=== PATIENT | female | born 1955 | race Caucasian/White ===

== ENCOUNTER → 2018-05-04 08:33 | Outpatient (CLI) | payer MEDICAID, SELFPAY ==
--- NOTE | 2018-05-04 08:36 | CI_ITS ---
Cerebrovascular Exam Indications: 785.9 Bruit. IMPRESSIONS 1. The bilateral vertebral arteries are patent with normal antegrade flow. 2. Study suggests less than 20% stenosis involving the right internal carotid artery and the left internal carotid artery. 3. Tortuous carotid arteries seen bilaterally. Carotid duplex study. Complete study and Doppler flow study including spectral analysis, color and concepcion scale imaging. Height: Height: 149.9cm. Height: 59in. Weight: Weight: 52.2kg. Weight: 114.8lb. Body mass index: BMI: 23.2kg/m^2. Body surface area: BSA: 1.48m^2. Location: Vascular laboratory. Patient status: Outpatient. Tables: Arterial flow: + +--------+---------+ Location V sys V ed + +--------+---------+ Right CCA - proximal 91.9cm/s -20.4cm/s + +--------+---------+ Right CCA - distal 77cm/s 24.4cm/s + +--------+---------+ Right ECA 108cm/s --------- + +--------+---------+ Right ICA - proximal 81.7cm/s 31.4cm/s + +--------+---------+ Right ICA - mid 143cm/s 36.7cm/s + +--------+---------+ Right ICA - distal 155cm/s 45.4cm/s + +--------+---------+ Right vertebral 46.3cm/s --------- + +--------+---------+ Left CCA - proximal 74.2cm/s 19.2cm/s + +--------+---------+ Left CCA - distal 88.2cm/s -26.2cm/s + +--------+---------+ Left ECA 75.1cm/s --------- + +--------+---------+ Left ICA - proximal 70.7cm/s 20.1cm/s + +--------+---------+ Left ICA - mid 85.1cm/s 27.7cm/s + +--------+---------+ Left ICA - distal 75.9cm/s 26.2cm/s + +--------+---------+ Left vertebral 40.2cm/s --------- + +--------+---------+ Velocity ratios: + + + + + Right, V sys Right, V ed Left, V sys + + + + + Max ICA/dist CCA 2.01 1.86 0.96 + + + + + (Report amended ) Electronically signed by: Braeden Powell [id number]
== END ==
PROVIDERS: PCP Emergency Medicine; Visit Provider Emergency Medicine
DX: R09.89 Other specified symptoms and signs involving the circulatory and respiratory systems (principal)
CPT/HCPCS: 93880

== ENCOUNTER → 2018-07-19 17:41 | Outpatient (CLI) | payer MEDICAID, SELFPAY ==
[2018-07-19 18:31] LABS: Amphetamine/Metha Screen,Urine Negative ng/mL (<1000); Barbiturates Screen,Urine Negative ng/mL (<200); Benzodiazepines Screen,Urine Positive ng/mL (<200); Cannabinoid Screen,Urine Negative ng/mL (<50); Cocaine Screen,Urine Negative ng/mL (<300); Methadone Screen,Urine Negative ng/mL (<300); Opiate Screen,Urine Negative ng/mL (<300); Phencyclidine Screen,Urine Negative ng/mL (<25)
== END ==
PROVIDERS: Visit Provider Physician Assistant
DX: Z79.899 Other long term (current) drug therapy (principal)
CPT/HCPCS: 80305

== ENCOUNTER → 2018-07-23 15:23 | Outpatient (CLI) | payer MEDICAID, SELFPAY ==
--- NOTE | 2018-07-23 15:26 | MR_ITS ---
MR lumbar spine wo con, MR 3-d myelogram/MRCP HISTORY: Low back. RT leg pain, numbness and tingling. PT also states beginning to move up into mid back area. ITS.REASON: Lumbar pain RLE numbness ORDERING PHYSICIAN: KLEBER Mota PATIENT AGE: 63 years Comparison: MRI 01/04/16. TECHNIQUE: Standard multiplanar multiecho sequences are performed without contrast. 3-D MIP and myelographic images are also rendered and reviewed FINDINGS: There is normal alignment. The spinal cord ends at the L1 level. T10-T11: Mild degenerative disc disease. T11-T12: Mild degenerative disc disease T12-L1, L1-L2, L2-L3, and L3-L4 have an unremarkable appearance. L4-L5: Minimal bulging disc with mild facet and ligamentum flavum hypertrophy with mild bilateral lateral recess narrowing. There is transverse narrowing of the canal. L5-S1: Unremarkable. IMPRESSION: 1. Mild adjacent disc disease lower thoracic spine. 2. Minimal bulging disc L4-5 with mild facet and ligamentum flavum hypertrophy with mild bilateral lateral recess narrowing. There is transverse narrowing of the canal 3. No disc herniation. No significant change
== END ==
PROVIDERS: PCP Physician Assistant; Visit Provider Physician Assistant
DX: M54.5 Low back pain (principal)
CPT/HCPCS: 72148; 76376

== ENCOUNTER → 2018-09-16 14:37 | Outpatient (CLI) | payer MEDICAID, SELFPAY | LOC: LAB 14:37 → LAB.DROPOF 14:37 | PROVIDERS: Visit Provider Obstetrics & Gynecology | DX: N39.0 Urinary tract infection, site not specified (principal) | CPT/HCPCS: 87086 ==

== ENCOUNTER → 2018-09-22 14:19 | Outpatient (CLI) | payer MEDICAID, SELFPAY | PROVIDERS: Visit Provider Emergency Medicine | DX: R10.9 Unspecified abdominal pain (principal) | CPT/HCPCS: 87086 ==

== ENCOUNTER → 2018-09-28 13:44 | Outpatient (CLI) | payer MEDICAID, SELFPAY ==
[2018-09-28 15:25] LABS: Amphetamine/Metha Screen,Urine Negative ng/mL (<1000); Barbiturates Screen,Urine Negative ng/mL (<200); Benzodiazepines Screen,Urine Positive ng/mL (<200); Cannabinoid Screen,Urine Negative ng/mL (<50); Cocaine Screen,Urine Negative ng/mL (<300); Methadone Screen,Urine Negative ng/mL (<300); Opiate Screen,Urine Negative ng/mL (<300); Phencyclidine Screen,Urine Negative ng/mL (<25)
== END ==
PROVIDERS: Visit Provider Emergency Medicine
DX: Z79.899 Other long term (current) drug therapy (principal)
CPT/HCPCS: 80305

== ENCOUNTER → 2018-10-15 08:58 | Outpatient (CLI) | payer MEDICAID, SELFPAY ==
--- NOTE | 2018-10-15 08:59 | MM_ITS ---
MM Dig screening mamm BI w/CAD CAD Screening COMPARISON: Digital mammograms with CAD 11/27/2015 and 12/10/2016 INDICATION: There is a history of breast cancer in patient's paternal aunt. TECHNIQUE: Standard CC and MLO images were obtained. R2 CAD reviewed. FINDINGS: Prominent somewhat heterogenic fibroglandular densities are seen in both breasts. There is a possible asymmetric developing density upper quadrant of the right breast only deftly seen on MLO projection. This likely is a summation shadow but recommend patient return for spot compression MLO view and 90 degrees lateral view and ultrasound if this proves to be a true lesion. There are couple of benign-appearing calcifications left breast. There is minimal arterial calcination in each breast. There are no suspicious microcalcifications. There are stable nodes in both axilla. IMPRESSION: Moderate breast density with possible developing asymmetric density right breast BI-RADS Category: 0 Need Additional Imaging Evaluation RECOMMENDED FOLLOW-UP: IMM - IMMEDIATE FOLLOW-UP RECOMMENDED (A letter has been sent to the patient regarding results of the study.)
--- NOTE | 2018-10-15 08:59 | XR_ITS ---
XR DEXA axial skeleton HISTORY: ITS.REASON: screening ORDERING PHYSICIAN: Henri Mishra MD PATIENT AGE: 63 years COMPARISON: 12/10/2016 FINDINGS: The BMD measured at the Left femoral neck is 0.614 g/cm squared with a T score of -3.1. This is considered Osteoporotic according to the World Health Organization criteria. Fracture risk is High. Treatment is advised. The L1 L4 density has a T score of -2.3 and has decreased by 1.8%. Hip density has increased by 1.7%. IMPRESSION: Osteoporosis with high fracture risk. Treatment is advised. Suggest follow-up exam September 2019
== END ==
PROVIDERS: PCP Emergency Medicine; Visit Provider Obstetrics & Gynecology
DX: Z12.31 Encounter for screening mammogram for malignant neoplasm of breast (principal); Z13.820 Encounter for screening for osteoporosis; M81.0 Age-related osteoporosis without current pathological fracture
CPT/HCPCS: 77067; 77080

== ENCOUNTER → 2018-11-10 14:53 | Outpatient (CLI) | payer MEDICAID, SELFPAY ==
--- NOTE | 2018-11-10 14:56 | MM_ITS ---
MM Dig mamm DX unilat RT CAD INDICATION: Follow-up abnormal mammogram ORDERING PHYSICIAN: Henri Mishra MD PATIENT AGE: 63 years COMPARISON: 10/15/2018, 11/14/2013 TECHNIQUE: Spot compression views and straight ML view FINDINGS: The area of asymmetry in the upper aspect of the right breast does appear to compress out as fibroglandular tissue. Just superior to this is a additional asymmetric area which is also felt to be fibroglandular tissue and is not significant change dating back to 11/14/2013 IMPRESSION: Probably benign findings, no evidence of malignancy. Asymmetric fibroglandular tissue is felt to have accounted for the radiographic abnormality BI-RADS Category: 3 Probably Benign Finding Short Term Follow-up RECOMMENDED FOLLOW-UP: 6M - 6 MONTH FOLLOW-UP (A letter has been sent to the patient regarding results of the study.)
== END ==
PROVIDERS: PCP Emergency Medicine; Visit Provider Obstetrics & Gynecology
DX: R92.8 Other abnormal and inconclusive findings on diagnostic imaging of breast (principal)
CPT/HCPCS: 77065

== ENCOUNTER → 2018-12-22 14:03 | Outpatient (CLI) | payer MEDICAID, SELFPAY ==
[2018-12-22 15:23] LABS: Amphetamine/Metha Screen,Urine Negative ng/mL (<1000); Barbiturates Screen,Urine Negative ng/mL (<200); Benzodiazepines Screen,Urine Positive ng/mL (<200); Cannabinoid Screen,Urine Negative ng/mL (<50); Cocaine Screen,Urine Negative ng/mL (<300); Methadone Screen,Urine Negative ng/mL (<300); Opiate Screen,Urine Negative ng/mL (<300); Phencyclidine Screen,Urine Negative ng/mL (<25)
== END ==
PROVIDERS: Visit Provider Emergency Medicine
DX: Z79.899 Other long term (current) drug therapy (principal)
CPT/HCPCS: 80305

== ENCOUNTER → 2019-06-21 16:32 | Outpatient (CLI) | payer MEDICAID, SELFPAY ==
[2019-06-21 19:54] LABS: Amphetamine/Metha Screen,Urine Negative ng/mL (<1000); Barbiturates Screen,Urine Negative ng/mL (<200); Benzodiazepines Screen,Urine Positive ng/mL (<200); Cannabinoid Screen,Urine Positive ng/mL (<50); Cocaine Screen,Urine Negative ng/mL (<300); Methadone Screen,Urine Negative ng/mL (<300); Opiate Screen,Urine Negative ng/mL (<300); Phencyclidine Screen,Urine Negative ng/mL (<25)
== END ==
PROVIDERS: Visit Provider Emergency Medicine
DX: Z79.899 Other long term (current) drug therapy (principal); N39.0 Urinary tract infection, site not specified
CPT/HCPCS: 80305; 87086

== ENCOUNTER → 2019-06-28 12:38 | Outpatient (CLI) | payer MEDICAID, SELFPAY ==
--- NOTE | 2019-06-28 12:38 | MM_ITS ---
PROCEDURE: MM DIG MAMM DX UNILAT RT CAD CLINICAL INDICATION: 6 MTH F/U RT BREAST DENSITY, abnormal mamm COMPARISON: DIG MAMM-DX UNI-RT from 11/10/2018 TECHNIQUE: Standard CC and MLO images and 3D Tomosynthesis was obtained. Spot compression views were obtained in MLO and CC projection. R2 CAD reviewed. FINDINGS: Moderate fibroglandular densities are seen in the central portion of the breast. Again noted is a benign-appearing calcification just deep to the nipple and a 2nd benign-appearing microcalcification upper central portion. Spot compression views and particularly the tomosynthesis views show no persistent or suspicious asymmetric density. IMPRESSION: Moderate breast density with no suspicious lesions seen BI-RAD Category: 2 Benign Finding(s) FOLLOW-UP: 6M 6Month Follow-up to return to normal yearly screening schedule (A letter has been sent to the patient regarding results of the study.) Dictated by: Dr. Jarvis Owusu MD 07/02/2019 08:[address] Jarvis Owusu MD in [place] 07/02/2019 08:54
== END ==
PROVIDERS: PCP Emergency Medicine; Visit Provider Obstetrics & Gynecology
DX: R92.8 Other abnormal and inconclusive findings on diagnostic imaging of breast (principal)
CPT/HCPCS: 77061; 77065; G0279

== ENCOUNTER → 2019-07-05 13:38 | Outpatient (CLI) | payer MEDICAID, SELFPAY ==
--- NOTE | 2019-07-05 13:44 | CT_ITS ---
PROCEDURE: CT ABDOMEN PELVIS WO CON CLINICAL INDICATION: renal colic Renal colic, urinary tract infection, hematuria, bilateral flank pain COMPARISON: ABDPELWO CT abdomen pelvis wo con from 09/22/2018 TECHNIQUE: Axial images obtained with sagittal and coronal reformats. All CT scans at the facility use one or more dose reduction, viz: automated exposure control, ma/kV adjustment per patient size (including targeted exams where dose is matched to indication, i.e. head), or iterative reconstruction technique. FINDINGS: LOWER THORAX: There is a faint 5 mm nodule in the left lung base within the lingula medially not significantly changed. The there are coronary artery calcifications ABDOMEN & PELVIS: The liver, gallbladder, spleen, and pancreas have an unremarkable unenhanced appearance. Low-density nodularity is noted in the right adrenal gland measuring near water density and may be due to adenoma involvement. Not significantly changed. There is a 4 mm nonobstructing stone in the lower pole of the right kidney. No ureteral calculi. No hydronephrosis. No evidence of appendicitis or diverticulitis. There is a mild amount of retained colonic feces. No acute bony anomalies area in. Scattered calcific plaque is present involving the aortoiliac vessels. IMPRESSION: Nonobstructing right nephrolithiasis otherwise negative Dictated by: Braeden Powell MD 07/06/2019 14:36 Electronically signed by Braeden Powell MD in [place] 07/06/2019 14:36
== END ==
PROVIDERS: PCP Emergency Medicine; Visit Provider Emergency Medicine
DX: N23 Unspecified renal colic (principal)
CPT/HCPCS: 74176

== ENCOUNTER → 2019-12-13 14:30 | Outpatient (CLI) | payer MEDICAID, SELFPAY ==
[2019-12-13 14:40] LABS: Basophils # 0.1 K/mm3 (0-0.2); Basophils % 0.9 % (0.1-2.0); Eosinophils # 0.1 K/mm3 (0.0-0.4); Eosinophils % 1.7 % (0.1-12.0); Hematocrit 42.5 % (37.0-47.0); Lymphocytes # 2.5 K/mm3 (0.7-4.5); Mean Corpuscular Hemoglobin 30.1 pg (27.0-31.2); Mean Corpuscular Volume 91.4 fl (81-99); Mean Platelet Volume 9.9 fl (7.4-10.4); Monocytes # 0.4 K/mm3 (0.1-1.0); Monocytes % 6.4 % (1.7-9.3); Neutrophils # 3.4 K/mm3 (1.8-7.8); Neutrophils % 52.1 % (37.0-80.0); Platelet Count 343 K/mm3 (142-424); Red Blood Count 4.66 M/mm3 (4.20-5.40); Red Cell Distribution Width 13.4 % (11.5-17.5); White Blood Count 6.5 K/mm3 (4.8-10.8)
[2019-12-13 14:44] LABS: Chloride 97 mmol/L (98-107); Potassium 4.6 mmoL/L (3.5-5.1); Sodium 135 mmol/L (136-145)
[2019-12-13 14:47] LABS: Alanine Aminotransferase 26 U/L (12-78); Albumin Level 4.6 g/dl (3.5-5.0); Albumin/Globulin Ratio 1.5 (1.1-1.8); Alkaline Phosphatase 63 U/L (38-126); Anion Gap 14.6 mEq/L (5-15); Aspartate Amino Transferase 31 U/L (14-36); Bilirubin,Total 0.7 mg/dl (0.2-1.3); Blood Urea Nitrogen 13 mg/dl (7-17); Carbon Dioxide 28 mmol/L (22.0-30.0); Cholesterol 288 mg/dl (140-200); Estimated Glomerular Filt Rate 101 ml/min (>60); GFR (African American) 123 ML/MIN (>60); Globulin 3.1 g/dL (1.3-3.2); Total Protein,Serum 7.7 g/dl (6.3-8.2); Triglycerides 111 mg/dl (30-150); VLDL Cholesterol 22 mg/dL (0-40)
[2019-12-13 14:48] LABS: Calcium 9.7 mg/dl (8.4-10.2); Chol/HDL Ratio 4.6 (1-3.5); Glucose 138 mg/dl (74-100); HDL Cholesterol 63 mg/dl (40-60)
[2019-12-13 14:59] LABS: Direct LDL Cholesterol 184.72 mg/dL (100-129)
[2019-12-13 15:05] LABS: T4 (Thyroxine) 14.3 ug/dl (5.53-11.0)
[2019-12-13 15:18] LABS: Thyroid Stimulating Hormone 2.59 uIU/mL (0.465-4.68)
[2019-12-15 13:47] LABS: Hemoglobin A1C 5.3 % (4.0-6.0)
[2019-12-20 15:17] LABS: 1,25 Dihydroxy Vitamin D 86 pg/mL (.); 1,25-Dihydroxy, Vitamin D-2 <10 pg/mL (.); 1,25-Dihydroxy, Vitamin D-3 86 pg/mL (.)
== END ==
PROVIDERS: Physician Assistant; Visit Provider Emergency Medicine
DX: F41.9 Anxiety disorder, unspecified (principal); R73.09 Other abnormal glucose; E67.3 Hypervitaminosis D
CPT/HCPCS: 80053; 80061; 82652; 83036; 84436; 84443; 85025

== ENCOUNTER → 2020-06-18 14:12 | Outpatient (CLI) | payer MEDICAID, SELFPAY ==
[2020-06-18 15:37] LABS: Benzodiazepines Screen,Urine Positive ng/ml (<200)
[2020-06-18 15:38] LABS: Amphetamine/Metha Screen,Urine Negative ng/ml (<1000); Barbiturates Screen,Urine Negative ng/ml (<200)
[2020-06-18 15:39] LABS: Cannabinoid Screen,Urine Positive ng/ml (<50)
[2020-06-18 15:40] LABS: Cocaine Screen,Urine Negative ng/ml (<300); Methadone Screen,Urine Negative ng/ml (<300)
[2020-06-18 15:41] LABS: Opiate Screen,Urine Negative ng/ml (<300)
[2020-06-18 15:42] LABS: Phencyclidine Screen,Urine Negative ng/ml (<25)
== END ==
PROVIDERS: Visit Provider Emergency Medicine
DX: F41.9 Anxiety disorder, unspecified (principal)
CPT/HCPCS: 80305

== ENCOUNTER → 2020-09-04 15:43 | Outpatient (CLI) | payer MEDICAID, SELFPAY ==
[2020-09-04 19:59] LABS: Amphetamine/Metha Screen,Urine Negative ng/ml (<1000); Barbiturates Screen,Urine Negative ng/ml (<200)
[2020-09-04 20:00] LABS: Benzodiazepines Screen,Urine Positive ng/ml (<200)
[2020-09-04 20:01] LABS: Cannabinoid Screen,Urine Negative ng/ml (<50)
[2020-09-04 20:02] LABS: Cocaine Screen,Urine Negative ng/ml (<300)
[2020-09-04 20:03] LABS: Methadone Screen,Urine Negative ng/ml (<300); Opiate Screen,Urine Negative ng/ml (<300)
[2020-09-04 20:04] LABS: Phencyclidine Screen,Urine Negative ng/ml (<25)
== END ==
PROVIDERS: Visit Provider Emergency Medicine
DX: F41.9 Anxiety disorder, unspecified (principal); Z79.899 Other long term (current) drug therapy
CPT/HCPCS: 80305

== ENCOUNTER → 2020-09-18 10:13 | Outpatient (CLI) | payer MEDICAID, SELFPAY ==
--- NOTE | 2020-09-18 10:14 | MM_ITS ---
PROCEDURE: MM DIG SCREENING MAMM BI W/CAD Digital Breast Tomosynthesis Included CLINICAL INDICATION: breast ca screening There is a history of breast cancer in the patient's paternal aunt. COMPARISON: MG DIG MAMM-SCREEN ROSIE from 10/15/2018 MG DIG MAMM-DX UNI-RT from 11/10/2018 MG MM DIG MAMM DX UNILAT RT CAD from 06/28/2019 TECHNIQUE: Standard CC and MLO images and 3D Tomosynthesis was obtained. R2 CAD reviewed. FINDINGS: Moderate diffuse fibroglandular densities are seen in the central portions of both breasts. There has been some fatty replacement of the breast parenchyma when compared to the previous mammograms especially 10/15/2018. There are few scattered benign-appearing microcalcifications in each breast. There is minimal arterial calcification in each breast. There is no suspicious lesion in either breast and no suspicious microcalcifications. IMPRESSION: Diffusely dense parenchymal pattern with no suspicious lesions seen BI-RAD Category: 2 Benign Finding(s) FOLLOW-UP: 1YR 1 Year Follow-up (A letter has been sent to the patient regarding results of the study.) Dictated by: Dr. Jarvis Owusu MD 09/18/2020 11:03 Dr. Jarvis Owusu MD in [place] 09/18/2020 11:03
== END ==
PROVIDERS: PCP Emergency Medicine; Visit Provider Emergency Medicine
DX: Z12.31 Encounter for screening mammogram for malignant neoplasm of breast (principal)
CPT/HCPCS: 77063; 77067

== ENCOUNTER → 2020-12-04 14:01 | Outpatient (CLI) | payer MEDICAID, SELFPAY ==
[2020-12-04 14:22] LABS: Basophils # 0.1 K/mm3 (0-0.2); Basophils % 1.2 % (0.1-2.0); Eosinophils # 0.4 K/mm3 (0.0-0.4); Eosinophils % 5.5 % (0.1-12.0); Hematocrit 41.8 % (37.0-47.0); Hemoglobin 13.5 g/dL (12.2-16.2); Lymphocytes # 3.2 K/mm3 (0.7-4.5); Lymphocytes % 40.6 % (10-50); Mean Corpuscular HGB Conc 32.4 g/dL (31.8-35.4); Mean Corpuscular Hemoglobin 29.4 pg (27.0-31.2); Mean Corpuscular Volume 90.9 fl (81-99); Mean Platelet Volume 10.4 fl (7.4-10.4); Monocytes # 0.6 K/mm3 (0.1-1.0); Monocytes % 6.9 % (1.7-9.3); Neutrophils # 3.7 K/mm3 (1.8-7.8); Neutrophils % 45.9 % (37.0-80.0); Platelet Count 331 K/mm3 (142-424); Red Cell Distribution Width 13.6 % (11.5-17.5)
[2020-12-04 14:39] LABS: Chloride 100 mmol/L (98-107)
[2020-12-04 14:40] LABS: Potassium 4.3 mmoL/L (3.5-5.1); Sodium 137 mmol/L (136-145)
[2020-12-04 14:42] LABS: Alanine Aminotransferase 25 U/L (12-78); Alkaline Phosphatase 79 U/L (38-126); Anion Gap 14.3 mEq/L (5-15); Aspartate Amino Transferase 34 U/L (14-36); Bilirubin,Total 0.5 mg/dl (0.2-1.3); Blood Urea Nitrogen 7 mg/dl (7-17); Carbon Dioxide 27 mmol/L (22.0-30.0); Cholesterol 278 mg/dl (140-200); Estimated Glomerular Filt Rate 125 ml/min (>60); GFR (African American) 151 ML/MIN (>60); Triglycerides 170 mg/dl (30-150); VLDL Cholesterol 34 mg/dL (0-40)
[2020-12-04 14:43] LABS: Albumin Level 4.7 g/dl (3.5-5.0); Albumin/Globulin Ratio 1.6 (1.1-1.8); Calcium 9.6 mg/dl (8.4-10.2); Chol/HDL Ratio 5.9 (1-3.5); Glucose 150 mg/dl (74-100); HDL Cholesterol 47 mg/dl (40-60); Total Protein,Serum 7.7 g/dl (6.3-8.2)
[2020-12-04 14:54] LABS: Direct LDL Cholesterol 181.45 mg/dL (100-129)
[2020-12-04 14:58] LABS: Amphetamine/Metha Screen,Urine Negative ng/ml (<1000)
[2020-12-04 14:59] LABS: Barbiturates Screen,Urine Negative ng/ml (<200); Benzodiazepines Screen,Urine Positive ng/ml (<200)
[2020-12-04 15:01] LABS: Cocaine Screen,Urine Negative ng/ml (<300)
[2020-12-04 15:02] LABS: Free T4 (Free Thyroxine) 1.19 ng/dl (0.78-2.19); Methadone Screen,Urine Negative ng/ml (<300)
[2020-12-04 15:03] LABS: 25-OH Vitamin D, Total 55.3 ng/mL (30-100); Cannabinoid Screen,Urine Negative ng/ml (<50); Phencyclidine Screen,Urine Negative ng/ml (<25)
[2020-12-04 15:04] LABS: Opiate Screen,Urine Negative ng/ml (<300)
== END ==
PROVIDERS: Visit Provider Emergency Medicine
DX: R07.9 Chest pain, unspecified (principal); E55.9 Vitamin D deficiency, unspecified; Z79.899 Other long term (current) drug therapy
CPT/HCPCS: 80053; 80061; 80305; 82306; 84439; 84443; 85025

== ENCOUNTER → 2020-12-10 07:16 | Outpatient (CLI) | payer MEDICAID, SELFPAY ==
--- NOTE | 2020-12-10 07:16 | NM_ITS ---
APPROVED REPORT Exam: Nuclear Stress Test Indication: Chest pain, Abnormal EKG, Tobacco use, Family history Patient Location: Outpatient Stress Tech: Olga Moncada [place] Tech:Ariadne Fountain, ARRT, RT (R)(N) Ht: 4 ft 11 in Wt: 112 lbs Bra Size: 34B HR: 55 bpm BP: 119/80 mmHg BSA: 1.44 m2 BMI: 22.6 History: Chest pain, Abnormal EKG, Tobacco use, Family history Procedure: Patient exercised on Rigoberto protocol 7:31 minutes and sec, resting heart rate 55 bpm, resting blood pressure 119/80 mmHg, with exercise maximum heart rate achived was 144 bpm which is 108 % of the maximum predicted heart rate and blood pressure was 162/62 mmHg. Test was stopped due to fatigue. Patient denied any complaint of chest pain. Patient has Good exercise capacity, achieved 10.1 METs of workload on treadmill, the blood pressure response to exercise was Adequate. Electrocardiogram Resting electrocardiogram showed sinus rhythm, with exercise there is less than 1.[address] segment depression noted from the baseline EKG. The EKG portion of the exercise Myoview is negative for ischemia. Cardiac Stress and Resting SPECT Images: Cardiac Stress and Resting SPECT images were obtained using technetium 99m Myoview 32.7 mCi stress and 10.57 mCi at rest. Gated SPECT for analysis of segmental wall motion and calculation of the ejection fraction also done. Prone images were also obtained. Cardiac stress and resting SPECT images show uniform myocardial activity without segmental perfusion abnormality, computer derived ejection fraction is over 65% with no regional wall motion abnormality, right ventricle is normal size and contractility. Conclusion: 1. The EKG portion of the exercise Myoview is negative for ischemia, patient has good exercise capacity achieved 10.1 METs of workload on treadmill, the blood pressure response to exercise was adequate, there was no exercise-induced chest discomfort. 2. No scintigraphic evidence of reversible ischemia seen, computer derived ejection fraction is over 65% with no regional wall motion abnormality, right ventricle is normal size and contractility. 3. Normal exercise Myoview study. Electronically signed by : Kranthi Christina, 12/10/2020 22:18:14
--- NOTE | 2020-12-10 09:39 | CA_ITS ---
APPROVED REPORT EXAM: Comprehensive 2D, Doppler, and color-flow Echocardiogram Instrument Panel Assembler: Arabella Gandara RVT Ht: 4 ft 11 in Wt: 112lbs BSA: 1.44 BP: 131/62 mmHg Indications: CP,ABN EKG,SOA,EX SMOKER,GERD,DIZZINESS 2D Dimensions LVOT 2.03 cm (M/F) 1.5-2.5 LA Volume 12.40 mL LA Volume Index 8.61 mL/m2 (M/F) 16-34 M-Mode Dimensions RVDd 1.88 cm (0.9-2.6) LA Diam 2.84 cm (1.9-4.0) LVDd 4.13 cm (3.5-5.7) Ao Diam 2.37 cm (2.0-3.7) LVDs 2.35 cm (3.5-5.7) IVSd 0.50 cm (0.6-1.1) PWd 0.66 cm (0.6-1.1) EF (Teich) 74.70% FS 43.10% EDV (Teich) 75.50 mL TAPSE 1.61 (<1.7) ESV (Teich) 19.10 mL LV Diastology E Decel Time 260.00 (160-240 msec) E/A Ratio 1.5 MED E' 10.30 (< 7 cm/sec) E'/MED E' Ratio 10.10 (>14) LAT E' 9.70 (<10 cm/sec) E/LAT E' Ratio 10.72 (>14) Aortic Valve AO Peak GR. 3.80 mmHg Mitral Valve MV E Max Timi. 104.00 (40-130 cm/s) MV A Velocity 71.00 (40-130 cm/s) E/A Ratio 1.47 MV Decel. Time 260.00 (160-240 ms) MV PHT 76.00 ms Pulmonary Valve PV Peak Velocity 64.00 (50-150 cm/s) Tricuspid Valve TR P. Velocity 235.00 cm/s RAP Estimate 10.00 mmHg RVSP 32.00 mmHg Left Ventricle Left atrium is normal size, left ventricle is normal size, there is no concentric left ventricular hypertrophy, visually estimated ejection fraction 55% with no regional wall motion abnormality, diastolic parameters are within normal range. Right Ventricle Right atrium and right ventricle are normal size and contractility. Aortic Valve Aortic valve is minimally thickened and fibrosed, there is no aortic stenosis or aortic insufficiency. Mitral Valve Mitral valve is grossly normal, there is trace mitral regurgitation. Tricuspid Valve Tricuspid valve grossly normal, there is trace tricuspid regurgitation, tricuspid regurgitation jet velocity is inadequate for calculation of the right ventricular systolic pressure. Pulmonic Valve Pulmonic valve is poorly visualized. Great Vessels Aortic root is normal size. Pericardium No significant pericardial effusion noted. Conclusion 1. Normal left ventricular size, preserved left ventricular systolic function, visually estimated ejection fraction 55% with no regional wall motion abnormality, diastolic parameters are within normal range. 2. Trace mitral and tricuspid regurgitation. 3. No significant pericardial effusion noted. Electronically signed by : Kranthi Christina, 12/10/2020 23:14:10
--- NOTE | 2020-12-10 09:39 | HMH.ITSHM ---
Current Home Medications as stated by this patient Kallie Johnson or employment representative. []TRAZADONE PANTOPRAZOLE ALPRAZOLAM
--- NOTE | 2020-12-10 10:17 | CA_ITS ---
APPROVED REPORT Exam: Exercise Treadmill Technologist: Olga Moncada, Ht: 4 ft 11 in Wt: 112 lbs BSA: 1.44 m2 HR: 55 bpm BP: 119/80 mmHg Medical History Medications: Alprazolam,,,,, Trazadone,,,,, Protonix,,,,, Stress Test Details Test: Rigoberto HR Resting HR: 54 bpm Max Heart Rate (APMHR): 157.982890 bpm Max HR Achieved: 148 bpm Target HR (85% APMHR): 133.937850 bpm % of APMHR: 94.27 Recovery HR: 74 bpm BP Resting BP: 123/72 mmHg Max BP: 162/62 mmHg Recovery BP: 126.0/55.0 mmHg ECG Resting ECG: Sinus Bradycardia Clinical Reason for Termination: Fatigue Exercise duration: 07:31 min Highest Stage Achieved: Exercise capacity: 10.1 METs Stress ECG Conclusion Exercised 7min 31sec Max HR: 144 % of PM: 108 Max BP: 162/62 MET's: 10.1 Test stopped due to: fatigue Symptoms: No CP Arrhythmias/Ectopy: None ST-T Changes: <1.5mm ST Segment changes Conclusion: Negative stress test. Nuclear images pending Electronically signed by : Kranthi Christina, 12/10/2020 19:08:16
== END ==
PROVIDERS: PCP Emergency Medicine; Visit Provider Physician Assistant
DX: R06.00 Dyspnea, unspecified (principal); R42 Dizziness and giddiness; R94.31 Abnormal electrocardiogram [ECG] [EKG]; I20.9 Angina pectoris, unspecified
CPT/HCPCS: 78452; 93017; 93306; A9502

== ENCOUNTER → 2020-12-12 11:23 | Outpatient (CLI) | payer MEDICAID, SELFPAY ==
[2020-12-12 12:09] LABS: Hemoglobin A1C 5.2 % (4.0-6.0)
== END ==
PROVIDERS: Visit Provider Emergency Medicine
DX: R73.09 Other abnormal glucose (principal)
CPT/HCPCS: 36415; 83036

== ENCOUNTER → 2021-03-13 13:42 | Outpatient (CLI) | payer MEDICAID, SELFPAY ==
[2021-03-13 15:07] LABS: Barbiturates Screen,Urine Negative ng/ml (<200); Benzodiazepines Screen,Urine Positive ng/ml (<200)
[2021-03-13 15:09] LABS: Cannabinoid Screen,Urine Negative ng/ml (<50)
[2021-03-13 15:10] LABS: Cocaine Screen,Urine Negative ng/ml (<300)
[2021-03-13 15:11] LABS: Methadone Screen,Urine Negative ng/ml (<300)
[2021-03-13 15:12] LABS: Opiate Screen,Urine Negative ng/ml (<300); Phencyclidine Screen,Urine Negative ng/ml (<25)
[2021-03-13 15:23] LABS: Amphetamine/Metha Screen,Urine Negative ng/ml (<1000)
== END ==
PROVIDERS: Visit Provider Emergency Medicine
DX: Z79.899 Other long term (current) drug therapy (principal)
CPT/HCPCS: 80305

== ENCOUNTER → 2021-06-11 13:42 | Outpatient (CLI) | payer MEDICAID, SELFPAY ==
[2021-06-11 15:20] LABS: Amphetamine/Metha Screen,Urine Negative ng/ml (<1000); Barbiturates Screen,Urine Negative ng/ml (<200)
[2021-06-11 15:22] LABS: Benzodiazepines Screen,Urine Positive ng/ml (<200)
[2021-06-11 15:23] LABS: Cannabinoid Screen,Urine Positive ng/ml (<50); Cocaine Screen,Urine Negative ng/ml (<300)
[2021-06-11 15:24] LABS: Methadone Screen,Urine Negative ng/ml (<300); Opiate Screen,Urine Negative ng/ml (<300)
[2021-06-11 15:25] LABS: Phencyclidine Screen,Urine Negative ng/ml (<25)
== END ==
PROVIDERS: Visit Provider Emergency Medicine
DX: M54.50 Low back pain, unspecified (principal)
CPT/HCPCS: 80305

== ENCOUNTER → 2021-07-26 15:33 | Outpatient (CLI) | payer MEDICAID, SELFPAY ==
[2021-07-30 21:51] LABS: Neisseria gonorrhoeae, NAA Negative (Negative)
== END ==
PROVIDERS: Visit Provider Obstetrics & Gynecology
DX: N89.8 Other specified noninflammatory disorders of vagina (principal)
CPT/HCPCS: 87491; 87591

== ENCOUNTER → 2021-08-23 13:05 | Outpatient (CLI) | payer MEDICAID, SELFPAY | PROVIDERS: Visit Provider Obstetrics & Gynecology | DX: N89.8 Other specified noninflammatory disorders of vagina (principal) | CPT/HCPCS: 87210 ==

== ENCOUNTER → 2021-09-04 10:34 | Outpatient (CLI) | payer MEDICAID, SELFPAY ==
--- NOTE | 2021-09-04 10:34 | US_ITS ---
FINAL REPORT CLINICAL HISTORY: pelvic pain-- bacterial vaginosis FINDINGS: Transvaginal sonographic images of the pelvis were obtained. The uterus measures 5.1 x 2.2 x 4.1 cm. The right ovary measures 2.1 x 0.85 x .76 cm. The left ovary measures 1.1 x 1.1 x 1.4 cm. There appears to be endocervical fluid of uncertain etiology. IMPRESSION: Endocervical fluid of uncertain etiology. Reviewed, Interpreted and Dictated by Cruz Peterson III, MD Transcribed by Marie Bolden Authenticated by Cruz Peterson III, MD on 09/04/2021 01:16:33 PM [facility]
== END ==
PROVIDERS: PCP Emergency Medicine; Visit Provider Obstetrics & Gynecology
DX: R10.2 Pelvic and perineal pain (principal)
CPT/HCPCS: 76830

== ENCOUNTER → 2021-09-11 12:36 | Outpatient (CLI) | payer MEDICAID, SELFPAY ==
[2021-09-11 14:02] LABS: Amphetamine/Metha Screen,Urine Negative ng/ml (<1000); Benzodiazepines Screen,Urine Positive ng/ml (<200)
[2021-09-11 14:03] LABS: Barbiturates Screen,Urine Negative ng/ml (<200)
[2021-09-11 14:04] LABS: Cannabinoid Screen,Urine Positive ng/ml (<50); Cocaine Screen,Urine Negative ng/ml (<300)
[2021-09-11 14:05] LABS: Methadone Screen,Urine Negative ng/ml (<300)
[2021-09-11 14:06] LABS: Opiate Screen,Urine Negative ng/ml (<300); Phencyclidine Screen,Urine Negative ng/ml (<25)
== END ==
PROVIDERS: PCP Emergency Medicine; Visit Provider Emergency Medicine
DX: Z79.899 Other long term (current) drug therapy (principal)
CPT/HCPCS: 80305

== ENCOUNTER → 2021-09-25 09:59 | Outpatient (CLI) | payer MEDICAID, SELFPAY ==
--- NOTE | 2021-09-25 10:13 | CT_ITS ---
FINAL REPORT TECHNIQUE: After the administration of oral and intravenous contrast, axial images were obtained through the abdomen and pelvis by computed tomography. The study was performed with techniques to keep radiation dose as low as reasonably achievable, (ALARA). Individual dose reduction techniques using automated exposure control or adjustment of mA and/or kV according to the patient's size were employed. CLINICAL HISTORY: c/o low abdominal pain with wt loss COMPARISON: July 05, 2019 FINDINGS: Abdomen: The lung bases are clear. The liver parenchyma is homogeneous. The gallbladder is present. The spleen, pancreas, adrenals and kidneys appear unremarkable. The aorta is normal in caliber. There is no free fluid or adenopathy. Pelvis: The appendix is not identified. The urinary bladder is unremarkable. The uterus lies eccentric to the left. No inflammatory reaction is seen. There is no free fluid or adenopathy. IMPRESSION: No acute intra-abdominal process. Reviewed, Interpreted and Dictated by Jan Ojeda MD Transcribed by Gabby Lima Authenticated by Jan Ojeda MD on 09/25/2021 01:06:16 PM [facility]
[2021-09-25 10:25] LABS: Blood Urea Nitrogen 6 mg/dl (7-17); Estimated Glomerular Filt Rate 84 ml/min (>60); GFR (African American) 102 ML/MIN (>60)
== END ==
PROVIDERS: PCP Emergency Medicine; Visit Provider Emergency Medicine
DX: R10.30 Lower abdominal pain, unspecified; R63.4 Abnormal weight loss
CPT/HCPCS: 36415; 74177; 82565; 84520; Q9967

== ENCOUNTER → 2021-11-14 06:58 | Outpatient (CLI) | payer MEDICAID, SELFPAY ==
[2021-11-13 18:19] LABS: Amphetamine/Metha Screen,Urine Negative ng/ml (<1000)
[2021-11-13 18:20] LABS: Barbiturates Screen,Urine Negative ng/ml (<200)
[2021-11-13 18:21] LABS: Benzodiazepines Screen,Urine Positive ng/ml (<200); Methadone Screen,Urine Negative ng/ml (<300)
[2021-11-13 18:22] LABS: Cannabinoid Screen,Urine Negative ng/ml (<50)
[2021-11-13 18:23] LABS: Cocaine Screen,Urine Negative ng/ml (<300); Opiate Screen,Urine Positive ng/ml (<300)
[2021-11-13 18:24] LABS: Phencyclidine Screen,Urine Negative ng/ml (<25)
== END ==
PROVIDERS: PCP Emergency Medicine; Visit Provider Emergency Medicine
DX: M54.50 Low back pain, unspecified (principal)
CPT/HCPCS: 80305

== ENCOUNTER → 2022-01-08 19:07 | Outpatient (CLI) | payer MEDICAID, SELFPAY ==
[2022-01-08 14:21] LABS: Amphetamine/Metha Screen,Urine Negative ng/ml (<1000); Barbiturates Screen,Urine Negative ng/ml (<200)
[2022-01-08 14:22] LABS: Benzodiazepines Screen,Urine Positive ng/ml (<200)
[2022-01-08 14:23] LABS: Cannabinoid Screen,Urine Negative ng/ml (<50); Cocaine Screen,Urine Negative ng/ml (<300)
[2022-01-08 14:24] LABS: Methadone Screen,Urine Negative ng/ml (<300)
[2022-01-08 14:25] LABS: Opiate Screen,Urine Positive ng/ml (<300); Phencyclidine Screen,Urine Negative ng/ml (<25)
== END ==
PROVIDERS: PCP Emergency Medicine; Visit Provider Emergency Medicine
DX: Z79.899 Other long term (current) drug therapy (principal)
CPT/HCPCS: 80305

== ENCOUNTER → 2022-03-17 13:05 | Outpatient (CLI) | payer MEDICARE, SELFPAY ==
[2022-03-17 17:15] LABS: Amphetamine/Metha Screen,Urine Negative ng/ml (<1000)
[2022-03-17 17:16] LABS: Barbiturates Screen,Urine Negative ng/ml (<200); Benzodiazepines Screen,Urine Positive ng/ml (<200)
[2022-03-17 17:17] LABS: Cannabinoid Screen,Urine Positive ng/ml (<50); Cocaine Screen,Urine Negative ng/ml (<300)
[2022-03-17 17:18] LABS: Methadone Screen,Urine Negative ng/ml (<300)
[2022-03-17 17:19] LABS: Opiate Screen,Urine Positive ng/ml (<300); Phencyclidine Screen,Urine Negative ng/ml (<25)
== END ==
PROVIDERS: PCP Emergency Medicine; Visit Provider Emergency Medicine
DX: Z79.899 Other long term (current) drug therapy (principal)
CPT/HCPCS: 80305

== ENCOUNTER → 2022-05-13 13:30 | Outpatient (CLI) | payer MEDICARE, SELFPAY ==
[2022-05-13 18:51] LABS: Amphetamine/Metha Screen,Urine Negative ng/ml (<1000); Barbiturates Screen,Urine Negative ng/ml (<200)
[2022-05-13 18:52] LABS: Benzodiazepines Screen,Urine Positive ng/ml (<200)
[2022-05-13 18:53] LABS: Cannabinoid Screen,Urine Positive ng/ml (<50); Cocaine Screen,Urine Negative ng/ml (<300)
[2022-05-13 18:54] LABS: Methadone Screen,Urine Negative ng/ml (<300)
[2022-05-13 18:55] LABS: Opiate Screen,Urine Positive ng/ml (<300); Phencyclidine Screen,Urine Negative ng/ml (<25)
== END ==
PROVIDERS: PCP Emergency Medicine; Visit Provider Emergency Medicine
DX: Z79.899 Other long term (current) drug therapy (principal)
CPT/HCPCS: 80305

== ENCOUNTER → 2022-07-11 15:16 | Outpatient (CLI) | payer MEDICARE, SELFPAY ==
[2022-07-11 16:45] LABS: Amphetamine/Metha Screen,Urine Negative ng/ml (<1000); Barbiturates Screen,Urine Negative ng/ml (<200); Benzodiazepines Screen,Urine Positive ng/ml (<200); Cannabinoid Screen,Urine Positive ng/ml (<50); Cocaine Screen,Urine Negative ng/ml (<300); Methadone Screen,Urine Negative ng/ml (<300); Opiate Screen,Urine Positive ng/ml (<300); Phencyclidine Screen,Urine Negative ng/ml (<25)
== END ==
PROVIDERS: PCP Emergency Medicine; Visit Provider Emergency Medicine
DX: Z79.899 Other long term (current) drug therapy (principal)
CPT/HCPCS: 80305

== ENCOUNTER → 2022-09-10 09:33 | Outpatient (CLI) | payer MEDICARE, SELFPAY ==
[2022-09-10 14:18] LABS: Alanine Aminotransferase 21 U/L (12-78); Albumin Level 4.4 g/dl (3.5-5.0); Albumin/Globulin Ratio 1.4 (1.1-1.8); Alkaline Phosphatase 68 U/L (38-126); Anion Gap 8.5 mEq/L (5-15); Aspartate Amino Transferase 31 U/L (14-36); Bilirubin,Total 0.5 mg/dl (0.2-1.3); Blood Urea Nitrogen 8 mg/dl (7-17); Calcium 9.1 mg/dl (8.4-10.2); Carbon Dioxide 30 mmol/L (22.0-30.0); Chloride 99 mmol/L (98-107); Chol/HDL Ratio 7.7 (1-3.5); Cholesterol 271 mg/dl (140-200); Estimated Glomerular Filt Rate 100 ml/min (>60); GFR (African American) 121 ML/MIN (>60); Globulin 3.1 g/dL (1.3-3.2); HDL Cholesterol 35 mg/dl (40-60); Potassium 3.5 mmoL/L (3.5-5.1); Sodium 134 mmol/L (136-145); Total Protein,Serum 7.5 g/dl (6.3-8.2); Triglycerides 199 mg/dl (30-150); VLDL Cholesterol 40 mg/dL (0-40)
[2022-09-10 14:28] LABS: Direct LDL Cholesterol 170.72 mg/dL (100-129)
[2022-09-10 14:34] LABS: 25-OH Vitamin D, Total 43.9 ng/mL (30-100)
[2022-09-10 14:34] LABS: Amphetamine/Metha Screen,Urine Negative ng/ml (<1000); Barbiturates Screen,Urine Negative ng/ml (<200)
[2022-09-10 14:35] LABS: Benzodiazepines Screen,Urine Positive ng/ml (<200)
[2022-09-10 14:35] LABS: Free T4 (Free Thyroxine) 1.24 ng/dl (0.78-2.19)
[2022-09-10 14:36] LABS: Cannabinoid Screen,Urine Negative ng/ml (<50); Cocaine Screen,Urine Negative ng/ml (<300)
[2022-09-10 14:37] LABS: Methadone Screen,Urine Negative ng/ml (<300); Opiate Screen,Urine Positive ng/ml (<300)
[2022-09-10 14:38] LABS: Phencyclidine Screen,Urine Negative ng/ml (<25)
[2022-09-10 14:42] LABS: Basophils # 0.1 K/mm3 (0-0.2); Basophils % 1.1 % (0.1-2.0); Eosinophils # 0.2 K/mm3 (0.0-0.4); Eosinophils % 3.3 % (0.1-12.0); Hematocrit 47.8 % (37.0-47.0); Hemoglobin 15.7 g/dL (12.2-16.2); Lymphocytes # 2.3 K/mm3 (0.7-4.5); Lymphocytes % 33.5 % (10-50); Mean Corpuscular HGB Conc 32.9 g/dL (31.8-35.4); Mean Corpuscular Hemoglobin 29.2 pg (27.0-31.2); Mean Corpuscular Volume 88.7 fl (81-99); Mean Platelet Volume 11.5 fl (7.4-10.4); Monocytes # 0.7 K/mm3 (0.1-1.0); Neutrophils # 3.5 K/mm3 (1.8-7.8); Neutrophils % 52.2 % (37.0-80.0); Platelet Count 323 K/mm3 (142-424); Red Blood Count 5.39 M/mm3 (4.20-5.40); Red Cell Distribution Width 13.5 % (11.5-17.5); White Blood Count 6.7 K/mm3 (4.8-10.8)
[2022-09-10 14:48] LABS: Thyroid Stimulating Hormone 3.26 uIU/mL (0.465-4.68)
[2022-09-10 16:52] LABS: Glucose 24 mg/dl (74-100)
== END ==
PROVIDERS: PCP Emergency Medicine; Visit Provider Emergency Medicine
DX: R42 Dizziness and giddiness (principal); I20.8 Other forms of angina pectoris; Z79.899 Other long term (current) drug therapy; M81.0 Age-related osteoporosis without current pathological fracture
CPT/HCPCS: 80053; 80061; 80305; 82306; 84439; 84443; 85025

== ENCOUNTER → 2022-10-07 12:12 | Outpatient (CLI) | payer MEDICARE, MEDICAID, SELFPAY ==
--- NOTE | 2022-10-07 | CA_ITS ---
APPROVED REPORT Exam: Pharmacologic Technologist: Nay Alves, Ht: 4 ft 11 in Wt: 114 lbs BSA: 1.45 m2 HR: 52 bpm BP: 131/65 mmHg Rhythm: sinus elin Medical History Medications: Alprazolam,,,,, Pantoprazole,,,,, ValACYCLOVer,,,,, Hydrocodone Acetaminophen,,,,, Cardiac Risk Factors: FHX of CAD, Smoking Stress Test Details Test: LEXISCAN HR Resting HR: 51 bpm Max Heart Rate (APMHR): 155.876404 bpm Max HR Achieved: 97 bpm Target HR (85% APMHR): 131.194234 bpm % of APMHR: 62.58 Recovery HR: 83 bpm BP Resting BP: 131/65 mmHg Max BP: 139/64 mmHg Recovery BP: 139.0/64.0 mmHg ECG Resting ECG: sinus elin Clinical Exercise duration: 04:02 min Highest Stage Achieved: Exercise capacity: 1.0 METs Stress ECG Conclusion During lexiscan pt experinced light headedness. No arrhythmias noted. <1mm ST depression. Non diagnostic patient, did not meet target HR. No ischemic changes. Test Summary REST . . . . . . . Resting REST 02:58 . . 51 . 131/ 65 . . Stage 1 01:00 . . 90 . . . . Stage 2 01:00 . . 96 . 132/ 72 . . Stage 3 01:00 . . 92 . 126/ 71 . . Stage 4 01:00 . . 88 . 137/ 68 . . Stage 4 01:02 . . 88 . 137/ 68 . Stop exercise at 04:02 RECOVERY 01:00 . . 84 . . . . RECOVERY 02:00 . . 82 . 139/ 64 . . RECOVERY 03:00 . . 81 . 134/ 66 . . RECOVERY 03:27 . . 77 . 134/ 66 . . Electronically signed by : Ramesh Casarez MD 10/08/2022 08:11:36
--- NOTE | 2022-10-07 12:13 | NM_ITS ---
APPROVED REPORT Exam: Nuclear Stress Test Indication: chest pain..angina Patient Location: Outpatient Stress Tech: Nay Alves [place] Tech:Cheryl Pineda BLAISE RT (R)(N)(M) Ht: 4 ft 11 in Wt: 112 lbs Bra Size: b HR: 52 bpm BP: 131/65 mmHg BSA: 1.44 m2 TID: 0.93 BMI: 22.6 History: chest pain.angina Procedure: Patient received 0.4 mg of intravenous Lexiscan, resting heart rate 52 bpm, resting blood pressure 131/65 mmHg, with Lexiscan maximum heart rate achieved was 95 bpm which is 85 % of the maximum predicted heart rate and blood pressure was 132/72 mmHg. With Lexiscan, patient denied any complaint of chest pain. Cardiac Stress and Resting SPECT Images: Cardiac Stress and Resting SPECT images were obtained using technetium 99m Myoview 31.2 mCi stress and 10.37 mCi at rest. Stress images reveal mildly decreased myocardial activity in the anterior wall wall rest images reveal moderately decreased myocardial activity in the anterior wall Gated images calculated ejection fraction of 70% with normal wall motion Conclusion: Reverse redistribution in the anterior wall Normal ejection fraction and normal wall motion Electronically signed by : Ramesh Casarez MD 10/08/2022 13:54:49
== END ==
PROVIDERS: PCP Emergency Medicine; Visit Provider Nurse Practitioner Family
DX: I20.8 Other forms of angina pectoris
CPT/HCPCS: 78452; 93017; 93306; A9502; J2785

== ENCOUNTER 2022-11-03 08:06 | Day surgery (SDC) | payer MEDICARE, MEDICAID, SELFPAY ==
[2022-11-03] VITALS (13 sets, daily range): BP systolic 83–130; BP diastolic 41–75; PULSE 48–65; RESP 17–20; O2SAT 95–100; BMI 23.0
--- NOTE | 2022-11-03 07:08 | IR_ITS ---
APPROVED REPORT Patient Location: Outpatient PROCEDURES Left heart catheterization Left ventriculogram Selective coronary angiogram Drug-eluting stent deployment to the mid LAD INDICATION Angina pectoris, Abnormal Myoview anterior ischemia, Coronary artery disease Informed consent was obtained prior to the procedure. COMPLICATIONS None Estimated Blood Loss: Less than 10 mls TECHNIQUE One percent lidocaine used to anesthetize the right anterior aspect of the wrist. The right radial artery was accessed via the Seldinger technique. A 6 [place] sheath was placed in the right radial artery. 150 mg magnesium sulfate, 800 mcg of nitroglycerin, 1mg Lidocaine and 5000 U Heparin were given through the arterial sheath. The papa catheter was also used to perform left heart catheterization, left ventriculogram and selective coronary angiogram. At the end the diagnostic angiogram therapeutic heparin is administered giving a therapeutic ACT and the guide catheter was placed in left main artery followed by Choice PT export wire down the LAD. 2.75 x 15 mm Pendroy frontier stent was deployed at 20 garrett reducing the severe stenosis to 0% SEBASTIAN-3 flow was present before and after the procedure at the end the procedure the apparatus was removed the sheath was removed and hemostasis was achieved using TR banding patient was transferred to the postop putting in stable condition ANGIOGRAPHIC RESULTS The left main artery Normal The left anterior descending artery Has proximal 20% stenosis with a mid vessel focal 70% stenosis immediately adjacent to the largest of the diagonal arteries. There is additional 50% stenosis distal in the LAD and an area which is approximately 2.25 mm in diameter The circumflex artery Nondominant and has diffuse 20 to 30% stenosis The right coronary artery Is a dominant vessel and has ostial 10% calcified stenosis with proximal and mid vessel 10 to 20% stenoses The MACK ventriculogram reveals Normal 65% The left ventricular end-diastolic pressure 10 mmHg IMPRESSION Severe mid LAD disease as described above which correlated to the abnormal Myoview Successful stent to the mid LAD severe disease reduced to 0% with 1 drug-eluting stent Normal ejection fraction Normal left ventricular end-diastolic pressure PLAN 1. Dual antiplatelet therapy 2. Risk factor modification 3. LDL less than 55 to be achieved with high intensity statin 4. Avoidance of tobacco products 5. Cardiac rehabilitation Electronically signed by : Ramesh Casarez MD 11/03/2022 14:59:20
[2022-11-03 09:05] LABS: Basophils # 0.1 K/mm3 (0-0.2); Basophils % 0.9 % (0.1-2.0); Eosinophils # 0.4 K/mm3 (0.0-0.4); Eosinophils % 4.3 % (0.1-12.0); Hematocrit 39.1 % (37.0-47.0); Hemoglobin 12.4 g/dL (12.2-16.2); Lymphocytes # 3.3 K/mm3 (0.7-4.5); Lymphocytes % 40.2 % (10-50); Mean Corpuscular HGB Conc 31.7 g/dL (31.8-35.4); Mean Corpuscular Hemoglobin 28.5 pg (27.0-31.2); Mean Corpuscular Volume 89.8 fl (81-99); Mean Platelet Volume 9.3 fl (7.4-10.4); Monocytes # 0.7 K/mm3 (0.1-1.0); Monocytes % 9.1 % (1.7-9.3); Neutrophils # 3.7 K/mm3 (1.8-7.8); Neutrophils % 45.5 % (37.0-80.0); Platelet Count 337 K/mm3 (142-424); Red Blood Count 4.35 M/mm3 (4.20-5.40); Red Cell Distribution Width 14.3 % (11.5-17.5); White Blood Count 8.2 K/mm3 (4.8-10.8)
[2022-11-03 09:21] LABS: Anion Gap 14.6 mEq/L (5-15); Blood Urea Nitrogen 16 mg/dl (7-17); Calcium 8.8 mg/dl (8.4-10.2); Carbon Dioxide 28 mmol/L (22.0-30.0); Chloride 102 mmol/L (98-107); Creatinine Clearance Estimated 46 mL/min (50-200); Estimated Glomerular Filt Rate 100 ml/min (>60); GFR (African American) 121 ML/MIN (>60); Glucose 74 mg/dl (74-100); Potassium 4.6 mmoL/L (3.5-5.1); Sodium 140 mmol/L (136-145)
[2022-11-03 11:03] LABS: CATHL Activated Clotting Time 302 SEC (74-125)
--- NOTE | 2022-11-03 14:23 | P.CONPHA_ITS ---
PHA Results Technician Discharge Med Solderer Production Line: Kallie Johnson has received discharge medication counseling on the following medications: atorvastatin 40 mg hs bisoprolol 5 mg daily aspirin 81 mg daily Brilinta 90 mg bid MD NOT STARTING KELLY/ARB DUE TO BLOOD PRESSURE.
== END 2022-11-03 14:31 | disposition home or self-care (01) ==
PROVIDERS: PCP Emergency Medicine; Visit Provider Internal Medicine
DX: I25.118 Atherosclerotic heart disease of native coronary artery with other forms of angina pectoris (principal); R06.02 Shortness of breath; R42 Dizziness and giddiness; R94.30 Abnormal result of cardiovascular function study, unspecified; Z82.49 Family history of ischemic heart disease and other diseases of the circulatory system; Z87.891 Personal history of nicotine dependence
CPT/HCPCS: 80048; 85025; 85347; 92928; 93458; 99152; C1725; C1769; C1876; C9600; J1644; Q9967

== ENCOUNTER → 2022-11-05 11:05 | Outpatient (CLI) | payer MEDICARE, MEDICAID, SELFPAY ==
--- NOTE | 2022-11-05 11:06 | CA_ITS ---
FINAL REPORT CLINICAL HISTORY: heart cath 11/03/22 with rt wrist access, presents with pain and bruising to right wrist. Cath with stent placement in LAD 11/03/22. FINDINGS: DUPLEX SCAN RIGHT UPPER EXTREMITY ARTERIES TECHNIQUE: Axial and color Doppler waveform evaluation of the right radial artery was performed. FINDINGS: There is no evidence of right radial artery thrombosis or pseudoaneurysm. IMPRESSION: No evidence of right radial artery thrombosis or pseudoaneurysm. Reviewed, Interpreted and Dictated by Candy Cid MD Transcribed by Karen Landis Authenticated and [facility]
== END ==
PROVIDERS: PCP Emergency Medicine; Visit Provider Internal Medicine
DX: I77.0 Arteriovenous fistula, acquired (principal)
CPT/HCPCS: 93931

== ENCOUNTER → 2022-11-07 13:36 | Outpatient (CLI) | payer MEDICARE, SELFPAY ==
[2022-11-07 14:17] LABS: Amphetamine/Metha Screen,Urine Negative ng/ml (<1000)
[2022-11-07 14:18] LABS: Barbiturates Screen,Urine Negative ng/ml (<200); Benzodiazepines Screen,Urine Positive ng/ml (<200)
[2022-11-07 14:19] LABS: Cannabinoid Screen,Urine Negative ng/ml (<50)
[2022-11-07 14:20] LABS: Cocaine Screen,Urine Negative ng/ml (<300); Methadone Screen,Urine Negative ng/ml (<300)
[2022-11-07 14:21] LABS: Opiate Screen,Urine Positive ng/ml (<300)
[2022-11-07 14:22] LABS: Phencyclidine Screen,Urine Negative ng/ml (<25)
== END ==
PROVIDERS: PCP Emergency Medicine; Visit Provider Emergency Medicine
DX: Z79.899 Other long term (current) drug therapy (principal)
CPT/HCPCS: 80305

== ENCOUNTER → 2023-01-07 14:23 | Outpatient (CLI) | payer MEDICARE, MEDICAID, SELFPAY ==
[2023-01-07 13:44] LABS: Amphetamine/Metha Screen,Urine Negative ng/ml (<1000); Barbiturates Screen,Urine Negative ng/ml (<200); Benzodiazepines Screen,Urine Positive ng/ml (<200); Cannabinoid Screen,Urine Positive ng/ml (<50); Cocaine Screen,Urine Negative ng/ml (<300); Opiate Screen,Urine Positive ng/ml (<300); Phencyclidine Screen,Urine Negative ng/ml (<25)
[2023-01-07 16:57] LABS: Methadone Screen,Urine Negative ng/ml (<300)
== END ==
PROVIDERS: PCP Emergency Medicine; Visit Provider Emergency Medicine
DX: Z79.899 Other long term (current) drug therapy (principal)
CPT/HCPCS: 80305

== ENCOUNTER → 2023-02-06 11:56 | Outpatient (CLI) | payer MEDICARE, MEDICAID, SELFPAY ==
--- NOTE | 2023-02-06 | CA_ITS ---
APPROVED REPORT Exam: Pharmacologic Technologist: Olga Gibson, Ht: 4 ft 11 in Wt: 118 lbs BSA: 1.47 m2 HR: 50 bpm BP: 102/60 mmHg Rhythm: SINUS BRADYCARDIA Medical History Medical History: Hyperlipidemia Medications: Alprazolam,,,,, Aspirin,,,,, Metoprolol,,,,, Pantoprazole,,,,, Plavix,,,,, BisOPROLOL Fumarate,,,,, Ranexa,,,,, ValACYCLOVIR,,,,, RoSUVASTATIN,,,,, Hydrocodone-Acetaminophen,,,,, Allergies: LEVOFLAXACIN, PENICILLIN, ATORVASTATIN Cardiac Risk Factors: Hyperlipidemia, Smoking Stress Test Details Test: LEXISCAN HR Resting HR: 59 bpm Max Heart Rate (APMHR): 155 bpm Max HR Achieved: 98 bpm Target HR (85% APMHR): 132 bpm % of APMHR: 63 Recovery HR: 73 bpm BP Resting BP: 102/60 mmHg Max BP: 151/67 mmHg Recovery BP: 128.0/62.0 mmHg ECG Resting ECG: SINUS BRADYCARDIA Stress ECG: NO ST CHANGES Arrhythmia: NONE Clinical Exercise duration: 05:14 min Highest Stage Achieved: Stress ECG Conclusion PT HAD MILD NAUSEA AND HEAD DISCOMFORT NO CP NO SIGNIFICANT ST CHANGES UNREMARKABLE LEXISCAN STRESS MYOVIEW IMAGES REPORTED SEPARATELY Test Summary REST 04:33 . . 59 . 102/ 60 . . Stage 1 01:00 . . 86 . . . . Stage 2 01:00 . . 95 . . . . Stage 3 01:00 . . 96 . 151/ 67 . . Stage 4 01:00 . . 88 . 143/ 66 . . Stage 4 02:00 . . 86 . 121/ 66 . . Stage 4 02:14 . . 83 . 121/ 66 . Stop exercise at 05:14 RECOVERY 01:00 . . 77 . 129/ 59 . . RECOVERY 02:00 . . 75 . 129/ 59 . . RECOVERY 02:29 . . 73 . 128/ 62 . . Electronically signed by : Rema Jackson, 02/18/2023 00:27:42
--- NOTE | 2023-02-06 12:16 | NM_ITS ---
APPROVED REPORT Exam: Nuclear Stress Test Indication: CAD, 1 STENT, HTN, HYPERL;IPIDEMIA, FM HX, C.P. Patient Location: Outpatient Stress Tech: Olga Moncada MT Tech:Ericka Velasco ASHAHelen RT(R)(N) Ht: 4 ft 11 in Wt: 115 lbs Bra Size: 34A HR: 59 bpm BP: 102/60 mmHg BSA: 1.46 m2 Rhythm: NSR TID: 1.16 BMI: 23.2 History: CAD, 1 STENT, HTN, HYPERLIPIDEMIA, FM HX, C.P. Procedure: Patient received 0.4 mg of intravenous Lexiscan, resting heart rate 59 bpm, resting blood pressure 102/60 mmHg, with Lexiscan maximum heart rate achieved was 96 bpm which is % of the maximum predicted heart rate and blood pressure was 151/67 mmHg. With Lexiscan, patient denied any complaint of chest pain. Cardiac Stress and Resting SPECT Images: Cardiac Stress and Resting SPECT images were obtained using technetium 99m Myoview 32.0 mCi stress and 10.18 mCi at rest. Resting and stress imaging in both supine and prone positions demonstrate no evidence of fixed or reversible perfusion defects. Gated imaging demonstrates normal global and regional LV systolic function. LVEF is calculated at 65%. Conclusion: No evidence of fixed or reversible perfusion defects. Gated imaging demonstrates normal global and regional LV systolic function. LVEF is calculated at 65%. Electronically signed by : Rema Jackson, 02/18/2023 00:29:00
[2023-02-06 12:28] LABS: Basophils # 0.1 K/mm3 (0-0.2); Basophils % 0.9 % (0.1-2.0); Eosinophils # 0.2 K/mm3 (0.0-0.4); Eosinophils % 3.4 % (0.1-12.0); Hematocrit 44.3 % (37.0-47.0); Hemoglobin 13.7 g/dL (12.2-16.2); Lymphocytes # 2.5 K/mm3 (0.7-4.5); Mean Corpuscular Hemoglobin 29.6 pg (27.0-31.2); Mean Corpuscular Volume 95.4 fl (81-99); Mean Platelet Volume 9.3 fl (7.4-10.4); Monocytes # 0.4 K/mm3 (0.1-1.0); Monocytes % 5.7 % (1.7-9.3); Neutrophils # 3.4 K/mm3 (1.8-7.8); Platelet Count 302 K/mm3 (142-424); Red Blood Count 4.64 M/mm3 (4.20-5.40); Red Cell Distribution Width 13.5 % (11.5-17.5); White Blood Count 6.6 K/mm3 (4.8-10.8)
[2023-02-06 13:02] LABS: Chloride 105 mmol/L (98-107); Sodium 141 mmol/L (136-145)
[2023-02-06 13:03] LABS: Potassium 5.1 mmoL/L (3.5-5.1)
[2023-02-06 13:05] LABS: Alanine Aminotransferase 29 U/L (12-78); Albumin Level 4.2 g/dl (3.5-5.0); Alkaline Phosphatase 64 U/L (38-126); Anion Gap 14.1 mEq/L (5-15); Aspartate Amino Transferase 35 U/L (14-36); Bilirubin,Direct 0.3 mg/dl (0.0-0.4); Bilirubin,Indirect 0.2 mg/dL (0.0-0.9); Bilirubin,Total 0.5 mg/dl (0.2-1.3); Bilirubin,Unconjugated 0.2 mg/dL (0.0-1.1); Blood Urea Nitrogen 11 mg/dl (7-17); Calcium 10.1 mg/dl (8.4-10.2); Carbon Dioxide 27 mmol/L (22.0-30.0); Chol/HDL Ratio 4.6 (1-3.5); Cholesterol 190 mg/dl (140-200); Estimated Glomerular Filt Rate 72 ml/min (>60); GFR (African American) 87 ML/MIN (>60); Glucose 89 mg/dl (74-100); HDL Cholesterol 41 mg/dl (40-60); Total Protein,Serum 7.4 g/dl (6.3-8.2); Triglycerides 110 mg/dl (30-150); VLDL Cholesterol 22 mg/dL (0-40)
[2023-02-06 13:17] LABS: Direct LDL Cholesterol 100.27 mg/dL (100-129)
[2023-02-06 13:22] LABS: Free T4 (Free Thyroxine) 1.59 ng/dl (0.78-2.19)
[2023-02-06 13:36] LABS: Thyroid Stimulating Hormone 1.84 uIU/mL (0.465-4.68)
== END ==
LOC: RAD 11:57
PROVIDERS: Nurse Practitioner; PCP Emergency Medicine; Visit Provider Physician Assistant
DX: I25.10 Atherosclerotic heart disease of native coronary artery without angina pectoris (principal); F41.9 Anxiety disorder, unspecified; R06.00 Dyspnea, unspecified; Z72.0 Tobacco use; Z82.49 Family history of ischemic heart disease and other diseases of the circulatory system; R07.9 Chest pain, unspecified
CPT/HCPCS: 36415; 78452; 80048; 80061; 80076; 83735; 84439; 84443; 85025; 93017; A9502; J2785

== ENCOUNTER → 2023-03-06 21:37 | Outpatient (CLI) | payer MEDICARE, MEDICAID, SELFPAY ==
[2023-03-06 15:39] LABS: Amphetamine/Metha Screen,Urine Negative ng/ml (<1000)
[2023-03-06 15:40] LABS: Barbiturates Screen,Urine Negative ng/ml (<200)
[2023-03-06 15:42] LABS: Benzodiazepines Screen,Urine Positive ng/ml (<200); Cannabinoid Screen,Urine Positive ng/ml (<50)
[2023-03-06 15:43] LABS: Cocaine Screen,Urine Negative ng/ml (<300)
[2023-03-06 15:44] LABS: Methadone Screen,Urine Negative ng/ml (<300); Opiate Screen,Urine Positive ng/ml (<300)
[2023-03-06 15:45] LABS: Phencyclidine Screen,Urine Negative ng/ml (<25)
== END ==
PROVIDERS: PCP Emergency Medicine; Visit Provider Emergency Medicine
DX: G89.29 Other chronic pain (principal)
CPT/HCPCS: 80305

== ENCOUNTER → 2023-05-04 15:01 | Outpatient (CLI) | payer MEDICARE, MEDICAID, SELFPAY ==
[2023-05-04 15:13] LABS: Amphetamine/Metha Screen,Urine Negative ng/ml (<1000)
[2023-05-04 15:15] LABS: Barbiturates Screen,Urine Negative ng/ml (<200); Benzodiazepines Screen,Urine Positive ng/ml (<200)
[2023-05-04 15:16] LABS: Cannabinoid Screen,Urine Positive ng/ml (<50); Cocaine Screen,Urine Negative ng/ml (<300)
[2023-05-04 15:17] LABS: Methadone Screen,Urine Negative ng/ml (<300)
[2023-05-04 15:18] LABS: Opiate Screen,Urine Positive ng/ml (<300); Phencyclidine Screen,Urine Negative ng/ml (<25)
== END ==
PROVIDERS: PCP Internal Medicine; Visit Provider Internal Medicine
DX: Z79.899 Other long term (current) drug therapy (principal)
CPT/HCPCS: 80305

== ENCOUNTER 2023-06-18 20:06 | Outpatient (CLI) | payer MEDICARE, MEDICAID, SELFPAY ==
[2023-06-18 19:10] LABS: Amphetamine/Metha Screen,Urine Negative ng/ml (<1000)
[2023-06-18 19:11] LABS: Barbiturates Screen,Urine Negative ng/ml (<200); Benzodiazepines Screen,Urine Positive ng/ml (<200)
[2023-06-18 19:12] LABS: Cannabinoid Screen,Urine Positive ng/ml (<50)
[2023-06-18 19:13] LABS: Cocaine Screen,Urine Negative ng/ml (<300); Methadone Screen,Urine Negative ng/ml (<300)
[2023-06-18 19:14] LABS: Opiate Screen,Urine Positive ng/ml (<300)
[2023-06-18 19:15] LABS: Phencyclidine Screen,Urine Negative ng/ml (<25)
== END 2023-06-18 23:59 ==
LOC: LAB.DROPOF 20:07
PROVIDERS: Visit Provider Family Medicine
DX: Z79.899 Other long term (current) drug therapy (principal)
CPT/HCPCS: 80307

== ENCOUNTER 2023-12-15 09:29 | Outpatient (CLI) | payer MEDICARE, MEDICAID, SELFPAY | END 2023-12-15 23:59 | disposition home or self-care (01) | LOC: LAB.DROPOF 12-16 09:29 | PROVIDERS: PCP Nurse Practitioner Family; Visit Provider Nurse Practitioner Family | DX: N39.0 Urinary tract infection, site not specified (principal) | CPT/HCPCS: 87086 ==